=== PATIENT | female | born 1965 | race Caucasian/White ===

== ENCOUNTER 2016-11-09 14:20 | Emergency (ER) | payer SELFPAY ==
--- NOTE | ~2016-11-09 | ER ---
PATIENT'S NAME: GEORGI CARTER [facility] AGE: 51 Y [address] ROOM: [place] [address] LOCATION: ED ADMIT DATE: 11/09/2016 ER/Outpatient Report DISCHARGE DATE: 11/09/2016 FAMILY PHYSICIAN: PHYSICIAN, NO ATTENDING PHYSICIAN: Fabiano Suazo CHIEF COMPLAINT: General malaise and weakness, anxiety. HISTORY OF PRESENT ILLNESS: Ms. Carter presents for evaluation of multiple complaints. After discussion, it appears as though she is most concerned about her tiredness. She knows she has diabetes and uncontrolled hypertension as well as anxiety, depression, and low thyroid for which she is supposed to be taking medicines. She states she does not take any medication because she cannot afford them. Today she was driving from [place] to [place] to have lunch with her . She does smoke a pack a day. Her symptoms have been present for 2 months and she felt like on her way home today, she just could not do it anymore and stopped in. She denies thoughts of self-harm or harm towards others, but is very stressed out overall. She states her blood sugars have been very high for the last several weeks to months. PAST MEDICAL HISTORY: Documented in the record and reviewed by me. SOCIAL HISTORY: Documented in the record and reviewed by me. MEDICATIONS: Documented in the record and reviewed by me. ALLERGIES: DOCUMENTED IN THE RECORD AND REVIEWED BY ME. REVIEW OF SYSTEMS: All systems were reviewed and negative except as noted in the HPI. PHYSICAL EXAMINATION: VITAL SIGNS: Blood pressure 127/86, pulse 110, respiratory rate is 20, temperature 98.4, and SpO2 is 95% on room air. Pain 0/10. GENERAL: An age appropriate female, in no apparent pain and emotional, but not in respiratory distress. NEUROLOGIC: Awake and alert. GCS 15. No focal deficits. No asymmetry. HEENT: Normocephalic and atraumatic. Eyes are PERRL. Sclerae are injected. Oropharynx is clear. Teeth in poor repair. PATIENT'S NAME: GEORGI CARTER [facility] AGE: 51 Y [address] ROOM: [place] [address] LOCATION: [facility] ADMIT DATE: 11/09/2016 ER/Outpatient Report DISCHARGE DATE: 11/09/2016 FAMILY PHYSICIAN: PHYSICIAN, NO ATTENDING PHYSICIAN: Fabiano Suazo NECK: Supple. Trachea is midline. CHEST: Heart is regular rate and rhythm. Borderline tachycardia. No murmurs. LUNGS: Clear to auscultation bilateral. ABDOMEN: Soft, nontender, and nondistended. No rebound or guarding. BACK: Normal to inspection and palpation. EXTREMITIES: Warm and well perfused with no deformities or edema. LABORATORY DATA AND IMAGING STUDIES: Labs and X-rays: No imaging was obtained for this encounter. CMS with no appreciable abnormality, slightly low sodium and potassium at 134 and 3.6 respectively. Glucose is 451. Renal function and LFTs are grossly unremarkable. Beta-hydroxybutyrate is 0.7. Free T4 of 0.6, TSH is 33.300. CBC; white count is 11.5 with no left shift, hemoglobin 16.1, and platelets of 462,000. Venous blood gas; pH 7.42, pCO2 is 38. IMPRESSION: 1. Uncontrolled diabetes. 2. Hypothyroidism. 3. General malaise. 4. Smoking with no desire to quit. 5. Poor insight. EMERGENCY DEPARTMENT COURSE: The patient was seen and evaluated as above. I see no emergent medical conditions currently. The patient has poorly controlled diabetes. We will start her back on metformin for same. She was also given prescription for levothyroxine. The patient states she has taken both these medicines before, but could not remember the dose. We will taper her onto metformin. Start her on levothyroxine at 50 mcg daily. She will need to follow up in 1 month for re-evaluation of her current medications. I explained to her that [facility] She stated that this would be doable for her. We gave her some normal saline, and her heart rate improved markedly down to 79 on discharge. The patient was discharged in good condition. MD ELSIE TAYLOR/issa PATIENT'S NAME: GEORGI CARTER [facility] AGE: 51 Y [address] ROOM: [place] [address] LOCATION: ED ADMIT DATE: 11/09/2016 ER/Outpatient Report DISCHARGE DATE: 11/09/2016 FAMILY PHYSICIAN: MELISSA MARIA ATTENDING PHYSICIAN: Fabiano Suazo /[id number] d: 11/09/[id number] t: 11/20/16620, OUTPATIENT REPORT
[2016-11-09 15:18] LABS: BICARBONATE 24.6 mmol/L (18.0-23.0); PCO2 38 mmHg (35-45); PO2 92 mmHg (80-90)
[2016-11-09 15:19] LABS: BASOPHIL # 0.1 K/uL (0.0-0.2); BASOPHIL % 0.7 %; EOSINOPHIL # 0.1 K/uL (0.0-0.5); HEMATOCRIT 46.5 % (33.0-46.0); HEMOGLOBIN 16.1 g/dL (10.0-15.0); IMMATURE GRANULOCYTE # 0.1 K/uL (0.0-0.3); IMMATURE GRANULOCYTE % 0.4 %; LYMPHOCYTE # 2.7 K/uL (0.8-4.0); LYMPHOCYTE % 23.3 %; MCH 29.7 pg (27.0-34.0); MCHC 34.6 gm/dL (32.0-36.5); MCV 85.8 fl (83.0-98.0); MONOCYTE # 0.8 K/uL (0.0-1.0); MONOCYTE % 6.9 %; MPV 10.5 fl (9.4-12.4); NEUTROPHIL # (ANC) 7.8 K/uL (1.8-7.8); NEUTROPHIL % 67.7 %; NRBC % 0 /100WBC (0-0.00); PLATELET COUNT 462 K/uL (150-450); RBC 5.42 M/uL (3.50-5.50); RDW-CV 12.9 % (11.9-14.6); WBC 11.5 K/uL (4.0-11.0)
[2016-11-09 15:41] LABS: ALBUMIN 3.7 gm/dL (3.5-5.0); ANION GAP 12.6 (10.0-19.0); CALCIUM 8.9 mg/dL (8.5-10.5); CREATININE 1.1 mg/dL (0.5-1.1); POTASSIUM 3.6 mMol/L (3.7-5.1); TOTAL BILIRUBIN 0.3 mg/dL (0.0-1.5); TOTAL PROTEIN 8.1 g/dL (6.0-8.4)
== END 2016-11-09 16:47 | disposition disaster alternative care site (69) ==
LOC: GMED 14:20 → EDSEX 14:20 → GMED 16:47
PROVIDERS: Emergency Medicine
DX: R53.81 Other malaise (principal); E11.9 Type 2 diabetes mellitus without complications; E03.9 Hypothyroidism, unspecified; I10 Essential (primary) hypertension; F41.9 Anxiety disorder, unspecified; F32.9 Major depressive disorder, single episode, unspecified; F17.210 Nicotine dependence, cigarettes, uncomplicated; E78.00 Pure hypercholesterolemia, unspecified
CPT/HCPCS: J7030